=== PATIENT | female | born 1945 | race Caucasian/White ===

== ENCOUNTER 2024-04-09 17:39 | Emergency (ER) | payer MEDICARE, SELFPAY ==
[2024-04-09 18:20] VITALS: BP 125/71; PULSE 89; RESP 16; TEMP 38.6; O2SAT 94; BMI 29.2
--- NOTE | 2024-04-09 18:28 | EKG_ITS ---
[facility] Test Date: 2024-04-09 Pat Name: JESSICA DÍAZ Department: Room: - Gender: Female Dumpman: : 1945 Requested By: Talat Trujillo Order Number: [id number] Reading MD: Talat Trujillo Measurements Intervals [place] Rate: 92 P: 23 CO: 131 QRS: 3 QRSD: 86 T: 7 QT: 331 QTc: 411 Interpretive Statements SINUS RHYTHM WITH OCCASIONAL VENTRICULAR PREMATURE COMPLEXES MINIMAL ST DEPRESSION [0.025+ mV ST DEPRESSION] No previous ECG available for comparison /store/S0/[id number].pdf
--- NOTE | 2024-04-09 18:30 | EDRME_ITS ---
Rapid Medical Screening Exam [facility] Arrival date/time: 04/09/24 17:39 78F with history of migraines presents to ED with 3 days of worsening fevers/chills, body aches, PEDROZA, N/V, and light sensitivity. Chief Complaint: Headache Vital signs: Vital Signs Temperature 101.4 F H 04/09/24 18:20 Pulse Rate 89 04/09/24 18:20 Respiratory Rate 16 04/09/24 18:20 Blood Pressure 125/71 04/09/24 18:20 Pulse Oximetry (%) 94 L 04/09/24 18:20 Oxygen Delivery Method Room Air 04/09/24 18:20
--- NOTE | 2024-04-09 18:30 | XR_ITS ---
Examination: AP chest single view Technique one AP portable upright chest single view Exam date and time: April 09, 2024 at 1845 hrs. Indications: Bodyaches fever today. Findings: Opacity left base retrocardiac suspicious for early left base pneumonia Mild bronchitis pattern Mild prominence left ventricle Significant osteopenia Impression: Suspicious for early left base pneumonia
[2024-04-09] MEDS: SUMAtriptan INJ 6 MG/0.5 ML VIAL SC (18:40)
[2024-04-09 18:42] VITALS: TEMP 38.6
[2024-04-09] MEDS: METOCLOPRAMIDE 5 MG TABLET 10 MG PO (18:42)
[2024-04-09] MEDS: ACETAMINOPHEN 500 MG TABLET 1000 MG PO (18:42)
[2024-04-09 19:00] LABS: Lactate (Lactic Acid) 1.1 mMol/L (0.4-2.0)
[2024-04-09 19:01] LABS: Basophils % (Auto) 0 % (0-2.5); Eosinophils % (Auto) 0 % (0-10); Hematocrit 38.7 % (36.0-46.0); Hemoglobin 13.2 g/dL (12.0-16.0); Immature Granulocytes % (Auto) 1 % (0-0); Immature Granulocytes Auto 0.06 Thou/mm3 (0.00-0.00); Lymphocytes # (Auto) 0.7 Thou/mm3 (1.0-4.8); Lymphocytes % (Auto) 5 % (10-50); Mean Corpuscular HGB Conc 34.1 g/dl (31.0-37.0); Mean Corpuscular Hemoglobin 31.5 pg (25.0-35.0); Mean Corpuscular Volume 92 fL (80-100); Monocytes # (Auto) 1.1 Thou/mm3 (0.0-0.8); Monocytes % (Auto) 9 % (0-12); Neutrophils % (Auto) 85 % (37-80); Nucleated Red Blood Cell % 0 /100 WBC (0); Platelet Count 163 Thou/mm3 (140-440); RDW Standard Deviation 43.8 fL (36.4-46.3); Red Blood Count 4.19 Miln/mm3 (4.00-5.20); White Blood Count 12.8 Thou/mm3 (3.6-11.0)
[2024-04-09 19:24] LABS: B-Type Natriuretic Peptide 126 pg/mL (0-100)
[2024-04-09 19:33] LABS: Alanine Aminotransferase 14 U/L (10-49); Albumin, Serum 4.5 gm/dL (3.4-4.8); Albumin/Globulin Ratio 1.5 (1.2-2.2); Alkaline Phosphatase 79 U/L (46-116); Anion Gap 11 (7-16); Aspartate Amino Transferase 20 U/L (0-34); BUN/Creatinine Ratio 17 Ratio (12-20); Bilirubin,Total 0.5 mg/dL (0.3-1.2); Blood Urea Nitrogen 27 mg/dL (9-23); Calcium 9.5 mg/dL (8.3-10.6); Calcium (Corrected) 9.5 mg/dL (8.5-10.1); Carbon Dioxide 24.2 mMol/L (20.0-31.0); Chloride 104 mMol/L (98-107); Creatinine (Component) 1.6 mg/dL (0.6-1.3); Estimated Creatinine Clearance 27.5 mL/min (>60); Globulin 3.1 gm/dL (2.3-3.5); Glucose 123 mg/dL (74-106); Lipase 30 U/L (12-53); Osmolality,Calculated 283 (275-295); Potassium 3.8 mMol/L (3.4-5.1); Procalcitonin 6.13 ng/ml (0.0-0.49); Sodium 139 mMol/L (136-145); Total Protein 7.6 gm/dL (5.7-8.2); Troponin I < 0.020 ng/mL (0.0-0.045); eGFR 33 See Note
[2024-04-09 20:32] VITALS: BP 104/69; PULSE 75; RESP 18; TEMP 37.5; O2SAT 95
[2024-04-09 21:55] VITALS: BP 103/64; PULSE 73; RESP 19; TEMP 37.2; O2SAT 96
--- NOTE | 2024-04-09 22:46 | EDNOTE_ITS ---
ED Headache RME/HPI General Chief Complaint: Headache Stated Complaint: MIGRAINE / FEVER / VOMIT X 3 DAYS; EXCEDERIN 1030 Arrival date/time: 04/09/24 17:39 Limitations: no limitations RME / HPI RME / HPI Narrative: 04/09/24 17:39 78F with history of migraines presents to ED with 3 days of worsening fevers/chills, body aches, PEDROZA, N/V, and light sensitivity. ------- Dr. Cuellar's Main ED Evaluation: 78yo female presents to the ED for complaints of headache, fever and chills for 3 days. Patient states her symptoms have been intermittent. She reports having one emetic episode just prior to coming in for evaluation. She denies any dysuria, frequency, urgency, abdominal pain, back pain or any other associated symptoms. Denies any sick contacts. Patient is not on any medications. Related Data Home Medications ?Medication ?Instructions ?Recorded ?Confirmed tramadol 50 mg tablet (Ultram) 50 mg PO Q8HR PRN PAIN #0 tabs 03/06/13 omeprazole 20 mg capsule,delayed 20 mg PO QDAY ULCERS ##0 06/07/13 release (Prilosec) Previous Rx's ?Medication ?Instructions ?Recorded acetaminophen 325 mg tablet 650 mg (2 x 325 mg) PO .3 times 04/09/24 (Tylenol) daily PRN fever #20 tabs oseltamivir 75 mg capsule (Tamiflu) 75 mg PO BID 5 day s #10 caps 04/09/24 Allergies Allergy/AdvReac Type Severity Reaction Status Date / Time latex Allergy Severe ITCHING, Verified 08/20/14 19:39 RASH morphine Allergy Severe MIGRAINE Verified 08/20/14 19:39 STEROIDS Allergy Mild Swelling Uncoded 03/09/13 07:37 Review of Systems Review of Systems Systems Reviewed: All systems reviewed, normal except as documented Past Medical History Past Medical History CARDIAC: Negative Congestive Heart Failure RESPIRATORY: Negative Chronic Obstructive Pulmonary Disease (COPD) GENITOURINARY: Negative Renal Disease ENDOCRINE: Negative Diabetes Mellitus Type 1 or Diabetes Mellitus Type 2 OTHER HISTORY: Positive Blood Transfusions Social History SMOKING STATUS: Never smoker ED Exam General Limitations: Present no limitations General appearance: Present alert and in no apparent distress Head Head exam: Present atraumatic Eye Eye exam: Present normal appearance, PERRL and EOMI ENT ENT exam: Present normal exam, normal oropharynx and mucous membranes moist Neck Neck exam: Present normal inspection, full ROM and trachea midline Chest Chest inspection: Present normal inspection and symmetric chest wall rise Respiratory Respiratory exam: Present normal lung sounds bilaterally Cardiovascular Cardiovascular exam: Present regular rate, normal rhythm and normal heart sounds Abdominal Exam Abdominal exam: Present soft and normal bowel sounds Extremities Exam Extremities exam: Present normal inspection and full ROM Back Exam Back exam: Present normal inspection and full ROM Neurological Exam Neurological exam: Present alert, oriented X3 and CN II-XII intact Psychiatric Psychiatric exam: Present normal affect and normal mood Skin Skin exam: Present warm, dry, intact and normal color Course Course Course Narrative: CXR is ordered for determining the etiology of fever. Quality Measures none Orders Category Date Time Status Bedside COVID-19 Antigen Test NOW Care 04/09/24 18:28 Active Bedside Influenza A&B Antigen Test NOW Care 04/09/24 18:28 Completed EKG (ED ONLY) *Do not use* NOW Care 04/09/24 18:28 Completed EKG (ED Only) Stat Exams 04/09/24 18:28 Draft XR chest 1V portable Stat Exams 04/09/24 18:30 Completed BNP [B-Type Natriuretic Peptide] Stat Lab 04/09/24 18:52 Completed CBC Stat Lab 04/09/24 18:52 Completed Comprehensive Metabolic Panel Stat Lab 04/09/24 18:52 Completed Lactate (Lactic Acid) Stat Lab 04/09/24 18:52 Completed Lipase Stat Lab 04/09/24 18:52 Completed Procalcitonin Stat Lab 04/09/24 18:52 Completed Troponin I Stat Lab 04/09/24 18:52 Completed Acetaminophen Tab [Tylenol ES Tab] Med 04/09/24 18:29 Discontinued 1,000 mg PO X1 ONE Metoclopramide [Reglan] Med 04/09/24 18:29 Discontinued 10 mg PO X1 ONE Oseltamivir [Tamiflu] Med 04/09/24 23:20 Discontinued 75 mg PO X1 ONE SUMAtriptan INJ [Imitrex Inj] Med 04/09/24 18:29 Discontinued 6 mg SC X1 ONE Vital Signs Vital signs: Vital Signs Temperature 101.4 F H 04/09/24 18:20 Pulse Rate 89 04/09/24 18:20 Respiratory Rate 16 04/09/24 18:20 Blood Pressure 125/71 04/09/24 18:20 Pulse Oximetry (%) 94 L 04/09/24 18:20 Oxygen Delivery Method Room Air 04/09/24 18:20 Headache MDM Narrative MDM Narrative:: 78-year-old female with no significant past medical history coming from home with fever and chills x 1. The patient states she vomited once or twice but otherwise is having no diarrhea. She states she has no sick contacts. Here in emergency department the patient initially had a fever which is resolved with medication. The patient does not appear toxic and laboratory values show a white count of 12. Creatinine is slightly elevated 1.6 and her past creatinine was 1.5. The patient is tolerating p.o. and at this time does not have a IV does not want an IV and request that she be discharged home. Discussed results with the family and patient at bedside. Informed the patient that her Procalcitonin is elevated and was offered admission due to her age, but patient declined and is requestiing to go home. Patient does not want to provide a urine sample. Strict return precautions were given and patient verbalized understanding. Patient data External records reviewed:: [facility] previous records (Per chart review, patient has no previous ED visits or admissions to this facility.) Clinical information provided by:: patient Social determinants that could affect healthcare access:: none Patient has the following chronic illnesses:: none How is presenting disease/condition affected by chronic disease/condition?: no chronic disease Evaluation data The following diagnostics were reviewed and interpreted by me:: lab results and EKG tracing(s) Lab and/or radiology exams considered but not ordered:: none Interpretation Summary: Bedside Influenza is positive, WBC count is 12.8, Creatinine is slightly elevated at 1.6, Lactic Acid is normal, Procalcitonin is elevated at 6.13, according to my interpretation. EKG done at 1834, NSR, rate of 62, PVCs, nonspecific ST changes in lead III, no ST elevations or depressions, normal QTc, no STEMI, according to my interpretation. [place] [facility] Report Signed Patient: JESSICA DÍAZ [facility]. Record#: [id number] Birthdate: 1945 Age/Sex: 78 / F Location: [facility] Attending Dr: Ordering Physician: Talat Trujillo PA-C Date of Service: 04/09/24 Procedure(s): XR chest 1V portable Accession Number(s): [id number] cc: Jan Guerrero MD; Talat Trujillo PA-C~ Examination: AP chest single view Technique one AP portable upright chest single view Exam date and time: April 09, 2024 at 1845 hrs. Indications: Bodyaches fever today. Findings: Opacity left base retrocardiac suspicious for early left base pneumonia Mild bronchitis pattern Mild prominence left ventricle Significant osteopenia Impression: Suspicious for early left base pneumonia Dictated By: Jan Guerrero MD Signed By: <Electronically signed by Jan Guerrero MD in [place]> 04/09/24 1909 Medications / Prescriptions Medications or Prescriptions considered but not ordered:: none Medication administrations:: Medication Administration History Discontinued Medications Acetaminophen (Acetaminophen 500 Mg Tablet) 1,000 mg PO X1 ONE Stop: 04/09/24 18:30 Last Admin: 04/09/24 18:42 Dose: 1,000 mg Documented By: Metoclopramide HCl (Metoclopramide 5 Mg Tablet) 10 mg PO X1 ONE Stop: 04/09/24 18:30 Last Admin: 04/09/24 18:42 Dose: 10 mg Documented By: Oseltamivir Phosphate (Oseltamivir 75 Mg Capsule) 75 mg PO X1 ONE Stop: 04/09/24 23:21 Sumatriptan Succinate (Sumatriptan Inj 6 Mg/0.5 Ml Vial) 6 mg SC X1 ONE Stop: 04/09/24 18:30 Last Admin: 04/09/24 18:40 Dose: 6 mg Documented By: see above Consultations Consultation(s) initiated? (list below): No Diagnosis Differential diagnosis headache: other (COVID, Influenza, dehydration, electrolyte abnormality) Most likely diagnosis given after review of the tests above:: see below Admission Indicated Admission indicated?: not indicated Admission Request Was there a request for admission?: No Disposition Plan Disposition Plan: Discharge Discharge Attestation Discharge Attestation: The patient and all family members were given an opportunity to ask questions and understood the discharge instructions. Discharge instructions specifically effects, indications for sooner follow up or return to the emergency department, and the expected course of current diagnosis. Patient condition: Stable Discharge Plan Plan Patient Disposition: HOME (Self Care) Patient condition on transfer: Stable Prescriptions/Referrals Prescriptions/Med Rec: New oseltamivir [Tamiflu] 75 mg capsule 75 mg PO BID 5 Days Qty: 10 0RF acetaminophen [Tylenol] 325 mg tablet 650 mg PO .3 times daily PRN (Reason: fever) Qty: 20 0RF No Action tramadol [Ultram] 50 MG tablet 50 mg PO Q8HR PRN (Reason: PAIN) Qty: 0 Patient Comments: FOR PAIN, NOT TO EXCEED 8 TABS IN 24 HRS omeprazole [Prilosec] 20 MG capsule,delayed release(DR/EC) 20 mg PO QDAY Qty: 0 Patient Comments: TO SUPPRESS GASTRIC ACID SECRETIONS Referrals: Van Green FNP [Primary Care Provider] - In 1 week Problem List Clinical Impression: Influenza A Patient/Caregiver Discharge Instructions Education Materials: ED Influenza (Adult) Additional Instructions: DO READ your discharge instructions as these contain important information concerning your medical care. 1. Please take the Tamiflu and Tylenol as directed. 2. If medication has been prescribed for your condition, fill the prescription as soon as possible and follow the directions on the medication. 3. RETURN AT ONCE TO THE EMERGENCY DEPARTMENT if you have any problems or concerns. These include but are not limited to fever, worsening pain(belly, chest, head, etc?), worsening shortness of breath, uncontrollable bleeding, inability to tolerate food and water, or any condition that makes you question your well-being. Also, if your symptoms do not improve in the next 12-24 hours, return to the ER or seek medical care immediately. 4. Be sure to follow up with your regular physician or specialist as instructed at discharge as this is the best way to ensure that you receive the very best of care. If you do not have a primary care physician, please contact a physician group and make an appointment. 5. Please visit [employer] for coupons regarding your prescriptions. It is a free service for you to use and can help reduce the cost of your medication. We would like to thank you for coming today and our hope is that we served you and your family well during your stay Print Language: Mongolian Stand Alone Forms: Chanell Award Info., Patient Portal Info Letter
[2024-04-09] MEDS: OSELTAMIVIR 75 MG CAPSULE PO (23:53)
[2024-04-09 23:56] VITALS: BP 112/64; PULSE 79; RESP 20; O2SAT 96
== END 2024-04-10 00:03 | disposition home or self-care (01) ==
PROVIDERS: Physician Assistant; Emergency Provider Emergency Medicine; PCP Family Medicine
DX: J10.1 Influenza due to other identified influenza virus with other respiratory manifestations (principal)
CPT/HCPCS: 36415; 71045; 80053; 83605; 83690; 83880; 84145; 84484; 85025; 87400; 87811; 96372; 99283; J3030; A9270